=== PATIENT | female | born 1980 | race Caucasian/White ===

== ENCOUNTER 2017-01-22 12:50 | Emergency (ER) | payer MEDICAID ==
[~2017-01-22] VITALS: Ht 157.5 cm; Wt 86.5 kg
[~2017-01-22 12:50] MED LIST: PREN-16 ODT
[2017-01-22 12:57] VITALS: Ht 157.5 cm; Wt 86.5 kg
[2017-01-22] MEDS ORDERED: morphine 2 MG INJ IV STA (13:18)
[2017-01-22] MEDS ORDERED: ONDANSETRON 4 MG INJ IV STA (13:18)
[2017-01-22] MEDS ORDERED: SOD CHLORIDE 0.9% 1,000 ML IV STA (13:18)
[2017-01-22 13:39] LABS: ADD UMIC YES; URINE BILIRUBIN (Dip) NEGATIVE (NEGATIVE); URINE BLOOD (Dip) TRACE (NEGATIVE); URINE COLOR YELLOW (YELLOW); URINE GLUCOSE (Dip) NEGATIVE (NEGATIVE); URINE KETONES (Dip) 15 (NEGATIVE); URINE LEUKOCYTE ESTERASE (Dip) NEGATIVE (NEGATIVE); URINE NITRITE (Dip) NEGATIVE (NEGATIVE); URINE TOTAL PROTEIN (Dip) NEGATIVE (NEGATIVE); URINE UROBILINOGEN (Dip) 0.2 E.U./dL (0.1-1.0)
[2017-01-22 13:56] LABS: ADD SCAN DIFF NO
[2017-01-22 13:58] LABS: BASOPHILS % 0.2 % (0.0-2.0); EOSINOPHILS # 0.1 10^3/ul (0.0-0.5); EOSINOPHILS % 0.8 % (0.0-7.0); HEMATOCRIT 35.6 % (37.0-47.0); HEMOGLOBIN 12.1 g/dl (12.0-16.0); LYMPHOCYTES # 1.5 10^3/ul (0.8-2.9); LYMPHOCYTES % 15.2 % (15.0-51.0); MEAN CORPUSCULAR HEMOGLOBIN 28.3 pg (29.0-33.0); MEAN CORPUSCULAR VOLUME 83.2 fl (82.0-101.0); MEAN PLATELET VOLUME 9.2 fl (7.4-10.4); MONOCYTE # 0.6 10^3/ul (0.3-0.9); MONOCYTES % 6.3 % (0.0-11.0); NEUTROPHIL # 7.4 10^3/ul (1.6-7.5); NEUTROPHILS % 77.1 % (39.0-77.0); PLATELET COUNT 393 10^3/UL (140-415); RED BLOOD COUNT 4.28 10^6/ul (4.20-5.40); WHITE BLOOD COUNT 9.6 10^3/ul (4.8-10.8)
[2017-01-22 13:58] LABS: MUCUS,URINE MODERATE; URINE RBCS 0-2 /HPF (0)
[2017-01-22 13:59] LABS: BACTERIA,URINE FEW
[2017-01-22 14:11] LABS: ALBUMIN 4.3 g/dl (3.3-4.9); INR 0.96; PROTIME 12.8 Sec (12.2-14.2)
[2017-01-22 14:12] LABS: POTASSIUM 4.3 mmol/L (3.5-5.1)
[2017-01-22 14:14] LABS: ALBUMIN/GLOBULIN RATIO 1.07; BILIRUBIN,INDIRECT 0.1 mg/dl (0-1.1); BILIRUBIN,TOTAL 0.1 mg/dl (0.2-1.3); CREATININE 0.54 mg/dl (0.44-1.00); TOTAL PROTEIN 8.3 g/dl (6.1-8.1)
[2017-01-22 14:15] LABS: CALCIUM 9.1 mg/dl (8.4-10.2)
[2017-01-22] MEDS ORDERED: IOHEXOL 300MG/ML 150 ML BTL ONE (15:13)
[2017-01-22] MEDS ORDERED: SOD CHLORIDE 0.9% 100 ML ONE (15:13)
--- NOTE | 2017-01-22 15:46 | RADRPT ---
PROCEDURE: CT Abdomen and Pelvis with contrast. CLINICAL INDICATION: Periumbilical pain TECHNIQUE: CT scan of the abdomen and pelvis with contrast was performed on a multi-detector high- resolution CT scanner. The patient was scanned following the uncomplicated intravenous administrati on of 100 cc of Omnipaque 300. Coronal and sagittal reformatted images were obtained from the axial source images. Images were reviewed on a high-resolution PACS workstation. The total exam CTDI equa ls 15.60 mGy and the total exam DLP equals 943.29 mGy-cm. One or more of the following dose reduction techniques were used: Automated exposure control. Adjustment of the mA and/or kV according to patient size. Use of iterative reconstruction technique. COMPARISON: None. FINDINGS: CT abdomen: The lung bases are remarkable for focal consolidation in the right middle lobe with surrounding infi ltrates in the right middle lobe and right lower lobe concerning for pneumonia. The heart size is n ormal, without pericardial thickening or effusion. The liver is normal in size and density without focal mass or intrahepatic biliary dilatation. The spleen is normal in size and homogeneous in density. The stomach is partially collapsed, but is linda ssly unremarkable. The pancreas as visualized is normal. The gallbladder and biliary tree are unre markable and there is no evidence for biliary dilatation. The adrenal glands are symmetric and norm al. The kidneys are symmetrically unremarkable as well. No renal calculus or obstructive uropathy or mass lesion is seen. The aorta is of normal caliber. There is no retroperitoneal lymphadenopathy. The kp hepatis paul on is clear. The bowel and mesentery, as visualized, are equally unremarkable. CT pelvis: The small bowel loops situated within the pelvis are unremarkable. There is normal appendix. The p elvic organs are normal. The pelvic sidewalls and inguinal regions are clear. The sigmoid colon an d rectum are unremarkable. No mass or lymphadenopathy is seen. No acute inflammation is seen. The bladder is normal. There is trace free fluid in the pelvis. The surrounding osseous structures are unremarkable. No osteolytic or osteoblastic lesion is detected. IMPRESSION: 1. Focal consolidation in the right middle lobe with patchy infiltrates in the right middle and low er lobes in keeping with pneumonia. 2. No mass, lymphadenopathy, or focal acute inflammatory process is identified in the abdomen and p jane. 3. Normal appendix. RPTAT: BB .Elfego Price MD, MD Date Time Electronically viewed and signed by .Elfego Price MD, MD on 01/22/2017 15:46 .O/
--- NOTE | 2017-01-22 16:45 | RADRPT ---
PROCEDURE: XR Chest. CLINICAL INDICATION: Shortness of breath. Pneumonia TECHNIQUE: PA and lateral view of the chest were obtained COMPARISON: None FINDINGS: The cardiomediastinal silhouette is within normal limits. Patchy air space disease in the right low er lung zone is seen. The remaining lungs and pleural spaces are clear. The soft tissues and osseou s structures are unremarkable. IMPRESSION: Patchy infiltrate in the right lower lung zone consistent with pneumonia. A short interval follow-u p after treatment is recommended. RPTAT: HPNM Physician Geoffrey Date Time Electronically viewed and signed by Physician Geoffrey on 01/22/2017 16:44 /
[2017-01-22] MEDS ORDERED: LEVO750T25 PO (16:53)
--- NOTE | 2017-01-22 16:53 | ERD ---
ER Documentation Chief Complaint Date/Time DATE: 01/22/17 Chief Complaint Referred by clinic to rule out appendicitis HPI The patient is a 36-year-old female who presents to the Emergency Department with complaint of right-sided abdominal pain. The patient reports veyd-ty-zhgs days ago she developed fevers, nasal congestion and a productive cough of yellow /green-colored sputum. She has been using [id number] medication for her symptoms, with minimal relief. Upon waking up this morning, she noted onset of periumbilical, epigastric and right-sided abdominal pain. The pain is mostly localized to the right lower abdomen, but also moves upwards towards the upper abdomen and right flank. She describes the pain as aching in nature, and worsened upon coughing. She denies any associated nausea, vomiting or diarrhea. Denies dysuria, hematuria, urinary frequency or urgency. Denies any vaginal bleeding or new vaginal discharge. After onset of her abdominal pain, she presented to her primary medical provider's office, [place] [facility], where she was evaluated and then referred to the ED to rule out appendicitis. ROS All systems reviewed and are negative except as per history of present illness. Medications Home Meds Active Scripts Levofloxacin* (Levaquin*) 750 Mg Tablet, 750 MG PO DAILY for 7 Days, TAB Prov:UZMA LAMAR PA-C 01/22/17 Reported Medications Vit 18/Iron Cb/Fa/Dss (PRENACARE TABLET) 1 Each Tablet, 1 EACH ODT DAILY, #1 03/30/13 Allergies Allergies: Coded Allergies: No Known Allergy (Unverified , 03/30/13) PMhx/Soc Medical and Surgical Hx: pt denies Medical Hx, pt denies Surgical Hx History of Surgery: No Anesthesia Reaction: No Hx Neurological Disorder: No Hx Respiratory Disorders: No Hx Cardiac Disorders: No Hx Psychiatric Problems: No Hx Miscellaneous Medical Probl: No Hx Alcohol Use: No Hx Substance Use: No Hx Tobacco Use: No Smoking Status: Never smoker Physical Exam Vitals Vital Signs Date Time Temp Pulse Resp B/P Pulse Ox O2 Delivery O2 Flow Rate FiO2 01/22/17 17:25 98.5 92 18 107/69 97 Room Air 01/22/17 12:57 99.7 94 20 119/78 99 Physical Exam GENERAL: Well-developed, well-nourished, in no acute distress HEENT: Head is normocephalic, atraumatic. No scleral pallor or icterus. Pupils equal, round and reactive to light. Extraocular movements intact. Conjunctiva pink. Moist mucous membranes. No pharyngeal erythema or exudates. Uvula is midline. NECK: Supple. No masses, no tenderness, no lymphadenopathy. Trachea midline. No nuchal rigidity. Full range of motion. RESPIRATORY: Few rales to the right lower lung field. No rhonchi or wheezing. Equal breath sounds. Normal expiratory effort. CARDIOVASCULAR: Regular rate and rhythm. S1 and S2 normal. No murmurs, rubs, or gallops. GASTROINTESTINAL: Abdomen is soft, nontender, and nondistended. No guarding, no rebound tenderness. Normal bowel sounds. No abdominal bruits. No gross peritonitis. No masses or organomegaly. No tenderness at McBurney's point. Negative Leslie's sign. FLANK: No CVA tenderness, no mass or swelling. BACK: No midline tenderness. EXTREMITIES: No clubbing, cyanosis, or edema. Normal skin perfusion. Full range of motion of both the upper and lower extremities bilaterally. Muscle tone is normal. No focal swelling or erythema. Distal pulses are palpable, 2+ bilaterally. Capillary refill is less than 2 seconds. NEUROLOGIC: The patient is alert, awake, and oriented x 3. No focal neurologic deficits. Speech is normal. INTEGUMENT: Skin is clean, dry and intact. No rashes, lesions or petechiae present. PSYCHIATRIC: Appropriate; Cooperative. Result Diagram: 01/22/17 1340 01/22/17 1340 Results 24 hrs Laboratory Tests Test 01/22/17 13:30 01/22/17 13:40 Urine Amorphous Urates FEW Urine Bacteria FEW Urine Bilirubin NEGATIVE Urine Clarity CLEAR Urine Color YELLOW Urine Epithelial Cells FEW Urine Glucose NEGATIVE% Urine Hemoglobin TRACE Urine Ketones 15 Urine Leukocyte Esterase NEGATIVE Urine Microscopic RBC 0-2/HPF Urine Microscopic WBC 0-2/HPF Urine Mucus MODERATE Urine Nitrite NEGATIVE Urine Specific [place] 1.025 Urine Total Protein NEGATIVE Urine Urobilinogen 0.2 E.U./dL Urine pH 6.0 Activated Partial Thromboplast Time 31.0Sec Alanine Aminotransferase (ALT/SGPT) 22IU/L Albumin 4.3g/dl Albumin/Globulin Ratio 1.07 Alkaline Phosphatase 88IU/L Anion Gap 19 Aspartate Amino Transf (AST/SGOT) 30IU/L Basophils # 0.010^3/ul Basophils % 0.2% Blood Urea Nitrogen 8mg/dl Calcium Level 9.1mg/dl Carbon Dioxide Level 24mmol/L Chloride Level 103mmol/L Creatinine 0.54mg/dl Direct Bilirubin 0.00mg/dl Eosinophils # 0.110^3/ul Eosinophils % 0.8% Globulin 4.00g/dl Glucose Level 113mg/dl Hematocrit 35.6% Hemoglobin 12.1g/dl INR International Normalized Ratio 0.96 Indirect Bilirubin 0.1mg/dl Lipase 57U/L Lymphocytes # 1.510^3/ul Lymphocytes % 15.2% Mean Corpuscular Hemoglobin 28.3pg Mean Corpuscular Hemoglobin Concent 34.0g/dl Mean Corpuscular Volume 83.2fl Mean Platelet Volume 9.2fl Monocytes # 0.610^3/ul Monocytes % 6.3% Neutrophils # 7.410^3/ul Neutrophils % 77.1% Nucleated Red Blood Cells # 0.010^3/ul Nucleated Red Blood Cells % 0.0/100WBC Platelet Count 18331^3/UL Potassium Level 4.3mmol/L Prothrombin Time 12.8Sec Prothrombin Time Ratio 1.0 Red Blood Count 4.2810^6/ul Red Cell Distribution Width 13.0% Sodium Level 142mmol/L Total Bilirubin 0.1mg/dl Total Protein 8.3g/dl White Blood Count 9.610^3/ul Current Medications Medications (Trade) Dose Ordered Sig/Krystal Route PRN Reason Start Time Stop Time Status Last Admin Dose Admin Sodium Chloride (NS) 1,000 ml @ 1,000 mls/hr Q1H STAT IV 01/22/17 13:18 01/22/17 14:17 DC 01/22/17 13:55 Morphine Sulfate (morphine) 2 mg ONCE STAT IV 01/22/17 13:18 01/22/17 13:20 DC 01/22/17 13:55 Ondansetron HCl (Zofran Inj) 4 mg ONCE STAT IV 01/22/17 13:18 01/22/17 13:20 DC 01/22/17 13:55 IV Flush 10 ml 10 ml STK-MED ONCE .ROUTE 01/22/17 15:13 01/22/17 15:14 DC Sodium Chloride (NS) 100 ml @ ud STK-MED ONCE .ROUTE 01/22/17 15:13 01/22/17 15:14 DC Iohexol (Omnipaque 300mg/ ml) 150 ml STK-MED ONCE .ROUTE 01/22/17 15:13 01/22/17 15:14 DC Procedures/MDM The patient's case was reviewed and discussed with Dr. Peraza, who agrees with the plan of care including labs, treatment and advanced imaging as appropriate. After results, the patient's case was reviewed and discussed with Dr. Henson, who recommends that the patient be discharged home with rx for Levofloxacin 750 mg PO daily x 7 days. DIAGNOSTIC TESTS AND INTERPRETATION: PROCEDURE: XR Chest. CLINICAL INDICATION: Shortness of breath. Pneumonia TECHNIQUE: PA and lateral view of the chest were obtained COMPARISON: None FINDINGS:The cardiomediastinal silhouette is within normal limits. Patchy air space disease in the right lower lung zone is seen. The remaining lungs and pleural spaces are clear. The soft tissues and osseous structures are unremarkable. IMPRESSION: Patchy infiltrate in the right lower lung zone consistent with pneumonia. A short interval follow-up after treatment is recommended. Physician Geoffrey Date Time Electronically viewed and signed by Klever Treviño Physician on 01/22/2017 16 :44 PROCEDURE: CT Abdomen and Pelvis with contrast. CLINICAL INDICATION: Abdominal pain TECHNIQUE: CT scan of the abdomen and pelvis with contrast was performed on a multi-detector high-resolution CT scanner. The patient was scanned following the uncomplicated intravenous administration of 100 cc of Omnipaque 300. Coronal and sagittal reformatted images were obtained from the axial source images. Images were reviewed on a high-resolution PACS workstation. The total exam CTDI equals 15.60 mGy and the total exam DLP equals 943.29 mGy-cm. One or more of the following dose reduction techniques were used: Automated exposure control. Adjustment of the mA and/or kV according to patient size. Use of iterative reconstruction technique. COMPARISON: None. FINDINGS: CT abdomen: The lung bases are remarkable for focal consolidation in the right middle lobe with surrounding infiltrates in the right middle lobe and right lower lobe concerning for pneumonia. The heart size is normal, without pericardial thickening or effusion. The liver is normal in size and density without focal mass or intrahepatic biliary dilatation. The spleen is normal in size and homogeneous in density. The stomach is partially collapsed, but is grossly unremarkable. The pancreas as visualized is normal. The gallbladder and biliary tree are unremarkable and there is no evidence for biliary dilatation. The adrenal glands are symmetric and normal. The kidneys are symmetrically unremarkable as well. No renal calculus or obstructive uropathy or mass lesion is seen. The aorta is of normal caliber. There is no retroperitoneal lymphadenopathy. The kp hepatis region is clear. The bowel and mesentery, as visualized, are equally unremarkable. CT pelvis: The small bowel loops situated within the pelvis are unremarkable. There is normal appendix. The pelvic organs are normal. The pelvic sidewalls and inguinal regions are clear. The sigmoid colon and rectum are unremarkable. No mass or lymphadenopathy is seen. No acute inflammation is seen. The bladder is normal. There is trace free fluid in the pelvis. The surrounding osseous structures are unremarkable. No osteolytic or osteoblastic lesion is detected. IMPRESSION: 1. Focal consolidation in the right middle lobe with patchy infiltrates in the right middle and lower lobes in keeping with pneumonia. 2. No mass, lymphadenopathy, or focal acute inflammatory process is identified in the abdomen and pelvis. 3. Normal appendix. .Elfego Price MD, MD Date Time Electronically viewed and signed by .Elfego Price MD, on 01/22/2017 15:46 EMERGENCY DEPARTMENT COURSE: The patient was stable throughout the ED course. IV access established by nursing staff. Fluids, morphine and zofran administered. X-ray and CT imaging performed. On reevaluation, the patient was sitting comfortably in no signs of distress. She reports complete resolution of discomfort. MEDICAL DECISION MAKING: This is a 36-year-old female presenting to the Emergency Department with complaint of abdominal pain since this morning. Five days ago the patient developed fevers, nasal congestion and productive cough. This morning, she noted onset of periumbilical, epigastric and right-sided abdominal pain. She had no significant abnormalities noted n physical examination. Differential diagnosis includes, but is not limited to, gastroenteritis, gastritis, cholecystitis, cholangitis, choledocholithiasis, pancreatitis, perforated viscus, mesenteric ischemia, GERD, PUD, urinary tract infection, ectopic , AAA, endometriosis, zoster, nephrolithiasis, intraabdominal abscess, PID, ovarian cyst, mesenteric adenitis, hernia, tubo- ovarian abscess, pyelonephritis, pneumonia, hepatitis, infectious diarrhea, IBD , aortic dissection, torsion, bowel obstruction, appendicitis, diverticulitis. Imaging performed revealed focal consolidation in the right middle lobe with patchy infiltrates in the right middle and lower lobes, consistent with pneumonia.Otherwise, no evidence of acute appendicitis noted. No mass, lymphadenopathy, or focal acute inflammatory process is identified in the abdomen and pelvis. After rest and administration of fluids and medications, the patient reports no new complaints and resolved pain. Upon review and interpretation of the patient's presentation and overall ER course, I believe the patient's symptoms are most consistent with abdominal pain , uncertain etiology and pneumonia. Patient's abdominal pain may be secondary to the pneumonia. However, upon further discussion with the patient, she notes that the pain is worsened after heavy meals, particularly those that are greasy , and has presented in the epigastric region previously. Therefore, it's possibly secondary to gastritis vs. PUD as well. She will need further GI evaluation for confirmation. I doubt cholecystitis, no RUQ tenderness, negative Leslie's sign. Doubt pancreatitis - clinical presentation inconsistent. Doubt perforated ulcer, patient has a non-surgical abdomen. Doubt small bowel obstruction, patient is passing flatus, abdomen is non-distended. Doubt appendicitis, patient has no McBurney's point tenderness, no guarding, non-surgical abdomen, no tenderness over the RLQ. Doubt diverticulitis, exam inconsistent. Doubt ischemic bowel, no pain out of proportion to examination. Doubt torsion, symptoms and examination inconsistent. At this time, the patient is in stable condition and therefore can be discharged home with prescriptions for Levaquin, and strict return precautions for signs of deteriorating or worsening condition. She is advised to follow up with her primary care provider in 2-3 days for reevaluation and further management, or return to the ER sooner if symptoms worsen. I shared my medical decision making, plan, as well as the results with the patient at length and in great detail, and she verbally understands and agrees with the plan for further observation and care as an outpatient. At the time of discharge, all questions were answered. Departure Diagnosis: Primary Impression: Pneumonia Pneumonia type: due to unspecified organism Laterality: right Lung location : unspecified part of lung Qualified Code: J18.9 - Pneumonia of right lung due to infectious organism, unspecified part of lung Additional Impression: Abdominal pain Abdominal location: periumbilical Qualified Code: R10.33 - Periumbilical abdominal pain Condition: Stable Patient Instructions: Abdominal Pain, Gastritis (Adult), Pneumonia, Pneumonia ( Adult), Understanding Gastritis Additional Instructions: Llame al doctor MAANA y fariha vikram YAYO PARA DENTRO DE 2-3 ELLISON.Dgale a la secretaria que nosotros le instruimos hacer esta yayo.Avise o llame si machuca condicin se empeora antes de la yayo. Regresa aqui si peor o no mejor. UZMA LAMAR PA-C Jan 22, 2017 16:53
[2017-01-22 17:25] VITALS: BP 107/69; PULSE 92; RESP 18; TEMP 98.5
== END 2017-01-22 17:25 | disposition home or self-care (01) ==
LOC: FTE 12:50
DX: J18.9 Pneumonia, unspecified organism (principal)
CPT/HCPCS: 36415; 71020; 74177; 80053; 81001; 83690; 85025; 85610; 85730; 87086; 96374; 96375; J2270; J2405; J7030; Q9967; Z7502; Z7610; 81003

== ENCOUNTER 2019-07-02 20:50 | Outpatient (CLI) | payer OTHER ==
[~2019-07-02] VITALS: Ht 157.5 cm; Wt 91.6 kg
[~2019-07-02 20:50] MED LIST changes: +LEVO750T25 PO
[2019-07-02 21:05] VITALS: BP 113/65; PULSE 93; RESP 18; Ht 157.5 cm; Wt 91.6 kg
[2019-07-02] MEDS ORDERED: ONDANSETRON 4 MG INJ IV STA (21:26)
[2019-07-02] MEDS ORDERED: LACTATED RINGER'S 1,000 ML IV ONE (21:30)
--- NOTE | 2019-07-02 23:26 | PN ---
Triage Information Date/Time Reason for visit: nausea and vomiting Weeks of Gestation 25 weeks /Para Diabetes: none Hypertention: none Objective Vital Signs Date Temp Pulse Resp B/P (MAP) Pulse Ox O2 O2 Flow FiO2 Time Delivery Rate 07/02/19 98.3 93 18 113/65 96 Room Air 21:05 (81) Heart Rate: 130's Heart Rate Comments Appropriate for GA Contractions: None Results/Medications Result Diagram: 07/02/19219907/02/192199 Results 24 hrs Laboratory Tests Test 07/02/19 20:45 07/02/19 22:00 Urine Color TEJ Urine Clarity CLOUDY A Urine pH 5.0 Urine Specific [place] 1.032 H Urine Ketones 2+ H Urine Nitrite NEGATIVE Urine Bilirubin NEGATIVE Urine Urobilinogen NEGATIVE Urine Leukocyte Esterase NEGATIVE Urine Microscopic RBC 0 Urine Microscopic WBC 14 H Urine Squamous Epithelial Cells MANY A Urine Mucus MANY A Urine Hemoglobin NEGATIVE Urine Glucose NEGATIVE Urine Total Protein 1+ H White Blood Count 13.0 #H Red Blood Count 3.53 L Hemoglobin 10.7 L Hematocrit 31.7 L Mean Corpuscular Volume 89.8 Mean Corpuscular Hemoglobin 30.3 Mean Corpuscular Hemoglobin Concent 33.8 Red Cell Distribution Width 12.8 Platelet Count 368 Mean Platelet Volume 8.7 Immature Granulocytes % 0.500 H Neutrophils % 86.2 H Lymphocytes % 8.7 L Monocytes % 4.2 Eosinophils % 0.2 Basophils % 0.2 Nucleated Red Blood Cells % 0.0 Immature Granulocytes # 0.060 H Neutrophils # 11.2 H Lymphocytes # 1.1 Monocytes # 0.6 Eosinophils # 0.0 Basophils # 0.0 Nucleated Red Blood Cells # 0.0 Sodium Level 135 Potassium Level 3.5 Chloride Level 104 Carbon Dioxide Level 24 Anion Gap 7 Blood Urea Nitrogen 9 Creatinine 0.45 Est Glomerular Filtrat Rate mL/min > 60 Glucose Level 109 Calcium Level 8.8 Total Bilirubin 0.3 Direct Bilirubin 0.00 Indirect Bilirubin 0.3 Aspartate Amino Transf (AST/SGOT) 21 Alanine Aminotransferase (ALT/SGPT) 11 L Alkaline Phosphatase 85 Total Protein 7.0 Albumin 3.6 Globulin 3.40 H Albumin/Globulin Ratio 1.05 Amylase Level 75 Lipase 129 Disposition: Discharge Assessment/Plan After IV hydration patient feels better. Follow up in clinic on 07/03/2019. CATE RASHID MD Jul 02, 2019 23:26
--- NOTE | 2019-07-02 23:58 | TRIAGE ---
OB Triage Datetime Report Generated by CPN: 07/02/2019 23:58 Datetime: 07/02/2019 23:38 Stage of : OB Triage Datetime: 07/02/2019 23:35 Stage of : OB Triage Datetime: 07/02/2019 23:20 Stage of : OB Triage Datetime: 07/02/2019 23:10 Stage of : OB Triage Labor Evaluation Frequency: Irregular Monitor Mode: External Duration (sec)2399: 40-50 Resting Tone [place]: Relaxed Contraction Comments: Patient denies feeling contractions. Heart Rate FHR Baseline Rate: 130 Monitor Mode: External US Variability: Moderate 6-25 bpm Accelerations: 15X15 Decelerations: None Category: Category I Pain Assessment Pain Scale: 2 Pain Presence: Intermittent Pain Type: Ache Pain Location: Abdomen Pain Relief Measures: Comfort Measures Datetime: 07/02/2019 23:00 Nausea/Vomiting: Denies Monitor Mode: External US Pain Assessment Pain Scale: 3 Pain Presence: Intermittent Pain Type: Ache Pain Location: Abdomen Pain Relief Measures: Comfort Measures Datetime: 07/02/2019 22:21 Stage of : OB Triage Datetime: 07/02/2019 22:18 Stage of : OB Triage Datetime: 07/02/2019 22:10 Stage of : OB Triage Labor Evaluation Frequency: NONE Monitor Mode: External Resting Tone [place]: Relaxed Heart Rate FHR Baseline Rate: 130 Monitor Mode: External US Variability: Moderate 6-25 bpm Accelerations: 15X15 Decelerations: None Category: Category I Pain Assessment Pain Scale: 8 Pain Presence: Intermittent Pain Type: Ache Pain Location: Abdomen Pain Relief Measures: Comfort Measures Datetime: 07/02/2019 21:22 Stage of : OB Triage Datetime: 07/02/2019 21:09 Stage of : OB Triage Assessment Type: Triage Maternal Assessment Level of Consciousness: Keenly Alert, Responsive DTR's/Clonus: DTRs 2+; No Clonus Headache: Denies Blurred Vision: No Respiratory Effort: Unlabored; Regular Rhythm; Equal Expansion Breath Sounds, Left: Clear and Equal Breath Sounds, Right: Clear and Equal Nausea/Vomiting: Present RUQ Epigastric Pain: Denies Lower Extremities Edema: None Degree: None Upper Extremities Edema: None Degree: None Facial Edema: None Temperature Route: Oral Fall Risk Assessment History of Falling: (0) No Secondary Diagnosis: (0) No Ambulatory Aid: (0) Bedrest/Nurse Assist IV Therapy: (0) No Gait: (0) Normal/Bedrest/Immobile Mental Status: (0) Oriented to Own Ability Fall Score: 0 Fall Risk Score Definition: No Risk: No action required Labor Evaluation Frequency: none Monitor Mode: External Resting Tone [place]: Relaxed Heart Rate FHR Baseline Rate: 135 Monitor Mode: External US Variability: Moderate 6-25 bpm Accelerations: Prolonged Decelerations: None Category: Category I Pain Assessment Pain Scale: 8 Pain Presence: Intermittent Pain Type: Ache Pain Location: Abdomen Pain Relief Measures: Comfort Measures Datetime: 07/02/2019 21:07 Time of Arrival: 07/02/2019 20:35 EGA: 24.6 Arrived By: Wheelchair Arrived From: Emergency Dept Chief Complaint: Patient c/o vomitting and abdominal pain since 1700 Movement: Present Contractions: Denies/Absent Rupture of Membranes: Denies Vaginal Bleeding: None Recent Sexual Intercouse: Denies Abdominal Trauma: Not Applicable Patient Complaints: Nausea; Vomiting; Other Time Provider Notified: 07/02/2019 21:22 Provider Notified: Delshad Initial Plan: VS, EFM Datetime: 07/02/2019 20:57 Vaginal Exam Membrane Status: Intact
== END 2019-07-02 23:52 | disposition home or self-care (01) ==
LOC: OBT 20:50 → L-D 20:50 → OBT 23:52
PROVIDERS: ATTEND Obstetrics & Gynecology
DX: O21.2 Late vomiting of pregnancy (principal); Z3A.25 25 weeks gestation of pregnancy
CPT/HCPCS: 36415; 76815; 76817; 80053; 81001; 82150; 83690; 85025; 96360; 96376; J2405; J7120; Z7500; G0463

== ENCOUNTER 2019-09-05 08:40 | Outpatient (CLI) | payer OTHER ==
[~2019-09-05] VITALS: Ht 157.5 cm; Wt 95.4 kg
[~2019-09-05 08:40] MED LIST changes: -LEVO750T25 PO
[2019-09-05 08:52] VITALS: Ht 157.5 cm; Wt 95.4 kg
== END 2019-09-05 10:50 | disposition home or self-care (01) ==
LOC: L-D 08:40 → OBT 08:40
PROVIDERS: ATTEND Obstetrics & Gynecology
DX: O43.123 Velamentous insertion of umbilical cord, third trimester (principal); O09.523 Supervision of elderly multigravida, third trimester; Z3A.34 34 weeks gestation of pregnancy
CPT/HCPCS: 76818; Z7500; G0463